=== PATIENT | female | born 1975 | race Caucasian/White ===

== ENCOUNTER 2020-06-21 16:32 | Outpatient (CLI) | payer OTHER, SELFPAY | END 2020-06-21 16:33 | disposition home or self-care (01) | LOC: ANHLAB 16:36 | PROVIDERS: PCP Internal Medicine; Visit Provider Internal Medicine | DX: E03.9 Hypothyroidism, unspecified (principal) | CPT/HCPCS: 36415; 84443 ==

== ENCOUNTER 2020-12-20 16:29 | Outpatient (CLI) | payer OTHER, SELFPAY | END 2020-12-20 16:30 | disposition home or self-care (01) | LOC: ANHLAB 16:31 | PROVIDERS: PCP Internal Medicine; Visit Provider Internal Medicine | DX: E03.9 Hypothyroidism, unspecified (principal) | CPT/HCPCS: 36415; 84443 ==

== ENCOUNTER 2021-02-03 11:00 | Outpatient (CLI) | payer OTHER, SELFPAY ==
--- NOTE | ~2021-02-03 | US_ITS ---
EXAMINATION: US thyroid DATE: 02/03/2021 11:33 INDICATION: Hypothyroidism. TECHNIQUE: Multiple ultrasound images of the thyroid were obtained. COMPARISON: None. FINDINGS: The right thyroid lobe measures 3.5 x 1.2 x 0.9 cm. The left thyroid lobe measures 3.6 x 1.3 x 1.0 c m. The thyroid is diffusely heterogeneous and hypoechoic. Vascularity is increased. No discrete nodu le. IMPRESSION: 1. Heterogeneous, hypervascular thyroid, likely chronic lymphocytic (Marlee) thyroiditis. Reviewed, dictated and finalized at location A.
== END 2021-02-03 11:01 | disposition home or self-care (01) ==
LOC: ANHIMG 11:01
PROVIDERS: PCP Internal Medicine; Visit Provider Nurse Practitioner
DX: E03.9 Hypothyroidism, unspecified (principal); E06.3 Autoimmune thyroiditis
CPT/HCPCS: 76536

== ENCOUNTER 2021-07-16 09:36 | Outpatient (CLI) | payer OTHER, SELFPAY ==
[2021-07-16 10:11] LABS: Cholesterol 225 mg/dL (0-200); HDL Direct 58 mg/dL; Triglycerides 74 mg/dL (<150)
[2021-07-16 10:23] LABS: LDL Cholesterol Direct 124 mg/dL
[2021-07-16 10:47] LABS: Free T4 Free Thyroxine 0.78 ng/mL (0.78-2.19); Vitamin D 25 Hydroxy 49.1 ng/mL
[2021-07-19 12:02] LABS: Triiodothyronine T3 Free 2.5 pg/mL (2.3-4.2)
== END 2021-07-16 09:37 | disposition home or self-care (01) ==
PROVIDERS: PCP Internal Medicine; Referring Provider Nurse Practitioner; Visit Provider Internal Medicine Endocrinology, Diabetes & Metabolism
DX: E03.9 Hypothyroidism, unspecified (principal); E04.9 Nontoxic goiter, unspecified; Z13.21 Encounter for screening for nutritional disorder; E78.5 Hyperlipidemia, unspecified; E55.9 Vitamin D deficiency, unspecified
CPT/HCPCS: 36415; 80061; 82306; 84439; 84443; 84481

== ENCOUNTER 2021-11-04 12:32 | Outpatient (CLI) | payer OTHER, SELFPAY ==
[2021-11-04 14:13] LABS: Free T4 Free Thyroxine 1.02 ng/mL (0.78-2.19)
== END 2021-11-04 12:33 | disposition home or self-care (01) ==
LOC: ANHLAB 12:35
PROVIDERS: PCP Internal Medicine; Visit Provider Internal Medicine Endocrinology, Diabetes & Metabolism
DX: E03.9 Hypothyroidism, unspecified (principal)
CPT/HCPCS: 36415; 84439; 84443

== ENCOUNTER → 2022-01-26 10:05 | Outpatient (CLI) | payer OTHER, SELFPAY ==
--- NOTE | ~2022-01-26 | US_ITS ---
EXAMINATION: US pelvic complete DATE: 01/26/2022 10:33 INDICATION: Menorrhagia Comparison:No prior studies for comparison. TECHNIQUE: Multiple transabdominal and endovaginal sonographic images of the pelvis performed. FINDINGS: The uterus measures 10.1 x 4.7 x 4.9 cm. The endometrial complex measures 5 mm. The right ovary measures 3.5 x 1.8 x 1.7 cm and the left ovary measures 2.3 x 2.2 x 1.7 cm. There ar e small follicles in each ovary. Normal doppler signal in both ovaries. There is no free fluid in the pelvis. There are no abnormal masses seen on either side. IMPRESSION: 1. Unremarkable pelvic ultrasound. Reviewed, dictated and finalized at location B.
== END ==
PROVIDERS: PCP Internal Medicine; Visit Provider Advanced Practice Midwife
DX: N92.1 Excessive and frequent menstruation with irregular cycle (principal)
CPT/HCPCS: 76856

== ENCOUNTER 2022-01-26 16:10 | Outpatient (CLI) | payer OTHER, SELFPAY ==
[2022-01-26 16:21] LABS: Hemoglobin 14.6 g/dL (12.0-15.0); Mean Corpuscular HGB Conc 33.2 g/dl (32-36); Mean Corpuscular Hemoglobin 30.9 pg (26-34); Mean Platelet Volume 10.9 fl (7.4-10.4); Platelet Count Result 223 k/mm3 (150-375); Red Blood Count 4.73 M/mm3 (4.2-5.4); Red Cell Distribution Width 12.9 % (11.5-14.5); White Blood Count 7.2 K/mm3 (4.5-10.0)
[2022-01-26 17:23] LABS: Free T4 Free Thyroxine 1.05 ng/mL (0.78-2.19)
[2022-01-29 15:30] LABS: Triiodothyronine T3 Free 2.6 pg/mL (2.3-4.2)
== END 2022-01-26 16:11 | disposition home or self-care (01) ==
LOC: ANHLAB 16:11
PROVIDERS: PCP Internal Medicine; Visit Provider Internal Medicine Endocrinology, Diabetes & Metabolism
DX: E03.9 Hypothyroidism, unspecified (principal); E04.9 Nontoxic goiter, unspecified; N92.1 Excessive and frequent menstruation with irregular cycle
CPT/HCPCS: 36415; 84439; 84443; 84481; 85027

== ENCOUNTER 2022-06-09 10:04 | Outpatient (CLI) | payer OTHER, SELFPAY ==
[2022-06-09 11:05] LABS: Free T4 Free Thyroxine 1.45 ng/mL (0.78-2.19)
[2022-06-09 11:14] LABS: Thyroid Stimulating Hormone 0.747 uIU/mL (0.465-4.680)
== END 2022-06-09 10:05 | disposition home or self-care (01) ==
PROVIDERS: PCP Internal Medicine; Visit Provider Internal Medicine Endocrinology, Diabetes & Metabolism
DX: E03.9 Hypothyroidism, unspecified (principal)
CPT/HCPCS: 36415; 84439; 84443

== ENCOUNTER 2022-08-03 11:16 | Outpatient (CLI) | payer OTHER, SELFPAY ==
[2022-08-03 18:23] LABS: Thyroid Stimulating Hormone 0.339 uIU/mL (0.465-4.680)
[2022-08-03 19:56] LABS: Free T4 Free Thyroxine 1.37 ng/mL (0.78-2.19)
== END 2022-08-03 11:17 | disposition home or self-care (01) ==
LOC: ANHWCLAB 11:17
PROVIDERS: PCP Family Medicine; Visit Provider Internal Medicine Endocrinology, Diabetes & Metabolism
DX: E03.9 Hypothyroidism, unspecified (principal)
CPT/HCPCS: 36415; 84439; 84443

== ENCOUNTER 2022-10-05 15:23 | Outpatient (CLI) | payer OTHER, SELFPAY ==
[2022-10-05 17:15] LABS: Free T4 Free Thyroxine 1.11 ng/mL (0.78-2.19)
== END 2022-10-05 15:24 | disposition home or self-care (01) ==
LOC: ANHLAB 15:24
PROVIDERS: PCP Family Medicine; Visit Provider Internal Medicine Endocrinology, Diabetes & Metabolism
DX: E03.9 Hypothyroidism, unspecified (principal)
CPT/HCPCS: 36415; 84439; 84443

== ENCOUNTER 2023-02-01 11:03 | Outpatient (CLI) | payer OTHER, SELFPAY ==
[2023-02-01 17:15] LABS: Free T4 Free Thyroxine 1.24 ng/mL (0.78-2.19)
== END 2023-02-01 11:04 | disposition home or self-care (01) ==
LOC: ANHWCLAB 11:04
PROVIDERS: PCP Family Medicine; Visit Provider Internal Medicine Endocrinology, Diabetes & Metabolism
DX: E03.9 Hypothyroidism, unspecified (principal)
CPT/HCPCS: 36415; 84439; 84443

== ENCOUNTER 2023-08-08 09:01 | Outpatient (CLI) | payer OTHER, SELFPAY ==
[2023-08-08 13:24] LABS: Free T4 Free Thyroxine 1.26 ng/mL (0.78-2.19)
== END 2023-08-08 09:02 | disposition home or self-care (01) ==
LOC: ANHWCLAB 09:02
PROVIDERS: PCP Family Medicine; Visit Provider Nurse Practitioner Family
DX: E03.9 Hypothyroidism, unspecified (principal); E06.3 Autoimmune thyroiditis
CPT/HCPCS: 36415; 84439; 84443

== ENCOUNTER 2024-02-06 09:38 | Outpatient (CLI) | payer OTHER, SELFPAY ==
[2024-02-06 10:51] LABS: Thyroid Stimulating Hormone 0.927 uIU/mL (0.465-4.680)
[2024-02-06 10:52] LABS: Free T4 Free Thyroxine 1.11 ng/mL (0.78-2.19)
== END 2024-02-06 09:39 | disposition home or self-care (01) ==
LOC: ANHLAB 09:40
PROVIDERS: PCP Family Medicine; Visit Provider Nurse Practitioner Family
DX: E03.8 Other specified hypothyroidism (principal); E06.3 Autoimmune thyroiditis
CPT/HCPCS: 36415; 84439; 84443

== ENCOUNTER 2024-09-26 11:26 | Outpatient (CLI) | payer OTHER, SELFPAY ==
--- OUTSIDE RECORDS SUMMARY | 2024-09-26 11:33 | XMS_ITS | Referral Summary ---
Author Organization [facility] Address [address] [place] [address] Care Team Providers Care Development Advisor Name Role Phone Fernandez Correia MD Primary Care Provider [phone] Allergies Active Allergy Reactions Criticality Noted Date Comments Penicillins Anaphylaxis High 03/11/2018 Medications cetirizine (ZyrTEC) 10 mg tabletIndicatio ns:Allergic Rhinitis Take 1 tablet (10 mg total) by mouth daily Active levothyroxine (SYNTHROID) 88 mcg tablet 3 Active Zafemy 150-35 mcg/24 hr APPLY 1 PATCH TOPICALLY ONCE A WEEK FOR 21 DAYS 3 Active vit C/Zn gluc/herbal no.325 (ELDERBERRY ZINC VIT C MM) Apply to mouth Active Active Problems Problem Noted Date Diagnosed Date Hypothyroidism 03/10/2024 Assessment & Plan (03/10/2024 8:27 AM CDT): Managed by endocrinology. Levothyroxine 88 mcg daily. Lab Results Component Value Date TSH 0.75 03/04/2024 Physical exam, annual 03/10/2024 Assessment & Plan (03/10/2024 8:28 AM CDT): Preventive exam; reviewed recommended preventive screenings and vaccinations. Encourage annual flu vaccine. Wear sunscreen/protective clothing when outdoors. -with campus safety officer annually, has order for mammogram and is aware to call and schedule this. She is up-to-date on her colorectal cancer screening, completed Cologuard. BMI 29.0-29.9,adult 03/10/2024 Assessment & Plan (03/10/2024 8:28 AM CDT): BMI is appropriate for patient Immunizations Immunization Administration Dates Next Due Influenza, Unspecified 03/10/2024(Deferr ed: Patient Refused),03/11/2023(Deferred: Patient Refused),03/05/2023(Deferred: Patient Refused),03/11/2022(Deferred: Patient Refused),03/05/2022(Deferred: Patient Refused) Social History Tobacco Use Types Packs/Day Years Used Date Smoking Tobacco: Former Cigarettes 0.3 20 1 - 03/22/2018 Smokeless Tobacco: Never Tobacco Cessation:Counseling Given: Not Answered Alcohol Use Standard Drinks/Week Comments No 0 (1 standard drink = 0.6 oz pur e alcohol) PHQ-2 Answer Date Recorded PHQ-2 Total Score (If total score is 3 or more points, staff should administer the PHQ-9) 0 03/10/2024 Comments Unknown Sex and Gender Information Value Date Recorded Sex Assigned at Not on file 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 Gender Identity Not on file Sexual Orientation Not on file Last Filed Vital Signs Vital Sign Reading Time Taken Comments Blood Pressure 116/74 03/10/2024 7:56 AM CDT Pulse 88 03/10/2024 7:56 AM CDT Temperature 36.8 C (98.3 F) 03/10/2024 7:56 AM CDT Respiratory Rate 16 03/10/2024 7:56 AM CDT Oxygen Saturation 98% 03/10/2024 7:56 AM CDT Inhaled Oxygen Concentration - - Weight 74.9 kg (165 lb 1.6 oz) 03/10/2024 7:56 A M CDT Height 160 cm (5' 2.99 ) 03/10/2024 7:56 AM CDT Body Mass Index 29.25 03/10/2024 7:56 AM CDT Plan of Treatment Not on file Medical Devices Implanted Type Area Steaming Cabinet Tender Device Identifier Shelf Expiration Date Model / Serial / Lot [employer] [id number] Juggerknot Maxbraid 2.9mm 2 Loaded Soft Tapered Needle 2 [place] - [id number] Implanted:Qty: 2 on 03/22/2018 by Tonio Bellamy DPM at [facility] Right: Achilles Tendon [employer] 12/31/2022 [id number] / / [id number] [employer] [id number] Quattro Link 4.5mm 1 Row Knotless Self Punch Unique Eyelet [place] - [id number] Implanted:Qty: 1 on 03/22/2018 by Tonio Bellamy DPM at [facility] Right: Achilles Tendon [employer] 08/17/2022 [id number] / / [id number] [employer] Cm-9145sp Quattro Link 4.5mm 1 Row Knotless Self Punch Unique Eyelet [place] - [id number] Implanted:Qty: 1 on 03/22/2018 by Tonio Bellamy DPM at [facility] Right: Achilles Tendon [employer] 11/02/2022 [id number] / / [id number] [facility] Advance Directives For more information, please contact: [phone] * Full Code (Latest Code Status on File) Date Activated Date Inactivated Comments 03/22/2018 1:35 PM 03/22/2018 6:36 PM Care Teams Development Advisor Relationship Specialty Start Date End Date Fernandez Correia MD [address] [place] [address] PCP - General Family Medicine 03/05/23
--- OUTSIDE RECORDS SUMMARY | 2024-09-26 11:33 | XMS_ITS | Clinical Summary ---
Author Organization [facility] Address [address] [place] [address] Care Team Providers Care Product Responsibility Liaison Name Role Phone Fernandez Correia MD Primary Care Provider [phone] Allergies Active Allergy Reactions Criticality Noted Date [...] vaccine. Wear sunscreen/protective clothing when outdoors. -with healthcare technician annually, has order for mammogram and is aware to call and schedule this. She is up-to-date on her colorectal cancer screening, completed Cologuard. BMI 29.0-29.9,adult 03/10/2024 Assessment & Plan (03/10/2024 8:28 AM CDT): BMI is appropriate for patient Immunizations Immunization Administration Dates Next Due Influenza, Unspecified 03/10/2024(Deferr ed: Patient Refused),03/11/2023(Deferred: Patient Refused),03/05/2023(Deferred: Patient Refused),03/11/2022(Deferred: Patient Refused),03/05/2022(Deferred: Patient Refused) Surgical History Surgery Date Site/Laterality Comments ACHILLES TENDON REPAIR SECTION EYE SURGERY Medical History Medical History Date Comments Thyroid disease Social History Tobacco Use Types Packs/Day Years [...] on file 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 Gender Identity Not on file Sexual Orientation Not on file Obstetrics History Last Filed Vital Signs Vital Sign Reading [...] 03/10/2024 7:56 AM CDT Plan of Treatment Health Maintenance Due Date Last Done Comments Breast Cancer Screening-Mammogram 1976 Cervical Cancer Screening 1976 Colon Cancer Screening-DNA Stool 1976 Hepatitis C Screening 1976 DTaP/Tdap/Td Vaccine (1 - Tdap) 10/25/1987 Hepatitis B Screening 1994 Influenza Vaccine (#1) 2024 Postp oned from 02/10/2024 (Patient declined, but will receive in the future) Depression Screening 03/10/2025 03/10/2024, 03/05/2023 Regular Well Visit/Exam 18-64 03/10/2025 03/10/2024 Pneumococcal vaccine <65 Aged Out No longer eligible based on patient's age to complete this topic Medical Devices Implanted Type Area Cras Device Identifier Shelf Expiration Date Model / Serial / Lot [employer] [id number] Juggerknot Maxbraid 2.9mm 2 Loaded Soft Tapered Needle 2 [place] - [id number] Implanted:Qty: 2 on 03/22/2018 by Tonio Bellamy DPM at [facility] Right: Achilles Tendon [employer] 12/31/2022 [id number] / / [id number] [employer] Cm-9145sp Quattro Link 4.5mm 1 Row Knotless Self Punch Unique Eyelet [place] - [id number] Implanted:Qty: 1 on 03/22/2018 by Tonio Bellamy DPM at [facility] Right: Achilles Tendon [employer] 08/17/2022 [id number] / / [id number] [employer] Cm-9145sp Quattro Link 4.5mm 1 Row Knotless Self Punch Unique Eyelet [place] - [id number] Implanted:Qty: 1 on 03/22/2018 by Tonio Bellamy DPM at [facility] Right: Achilles Tendon [employer] 11/02/2022 [id number] / / [id number] Insurance [facility] Advance Directives For more information, please contact: [phone] * Full Code (Latest Code Status on File) Date Activated Date Inactivated Comments 03/22/2018 1:35 PM 03/22/2018 6:36 PM Care Teams Product Responsibility Liaison Relationship Specialty Start Date End [place] [address] PCP - General Family Medicine 03/05/23
--- OUTSIDE RECORDS SUMMARY | 2024-09-26 11:33 | XMS_ITS | Clinical Summary ---
Author Organization [facility] Address [address] [place] [address] Care Team Providers Care Register Repairer Name Role Phone Noman Tsang MD Primary Care Provider [phone] Source Comments [facility],non-owned Affiliates and Associated Physician Practices is amultiple site organization consisting of ambulatory clinics and hospital sitesin [place], [place], [place] and [place]. This disclosure is being madepursuant to the Care Everywhere program and may not contain all information available regarding this patient. Last updated 18.[facility] Allergies Active Allergy Reactions Criticality Noted Date Comments Penicillins Rash Medium 06/05/2019 Medications * Be aware that medications may not be up to date on this document. Alwaysverify current medications with the patient. levothyroxine (SYNTHROID) 75 MCG tablet Take 75 mcg by mouth daily before breakfast Active benzonatate (TESSALON) 200 MG capsule Take 1 capsule by mouth 3 times daily as needed for Cough 30 capsule 9 Active albuterol HFA (PROVENTIL;VENT ARIANA;PROAIR) 108 (90 Base) MCG/ACT inhaler Inhale 2 puffs by mouth every 4 hours as needed for Wheezing 1 Inhaler 9 Active methylPREDNISol one (MEDROL DOSEPAK) 4 MG tablet Take by mouth as directed 1 Each 9 Active Social History Tobacco Use Types Packs/Day Years Used Date Smoking Tobacco: Former Cigarettes 0.5 20 Smokeless Tobacco: Never Comments No Sex and Gender Information Value Date Recorded Sex Assigned at Not on file Legal Sex Female 7:19 PM NETWORK TECHNICAL ANALYST Gender Identity Not on file Sexual Orientation Not on file Last Filed Vital Signs Vital Sign Reading Time Taken Comments Blood Pressure 122/74 06/05/2019 3:45 PM NETWORK TECHNICAL ANALYST Pulse 86 06/05/2019 3:45 PM NETWORK TECHNICAL ANALYST Temperature 37.1 C (98.8 F) 06/05/2019 3:45 PM NETWORK TECHNICAL ANALYST Respiratory Rate 16 06/05/2019 3:45 PM NETWORK TECHNICAL ANALYST Oxygen Saturation 98% 06/05/2019 3:45 PM NETWORK TECHNICAL ANALYST Inhaled Oxygen Concentration - - Weight 86.2 kg (190 lb) 06/05/2019 3:45 PM NETWORK TECHNICAL ANALYST Height 160 cm (5' 3 ) 06/05/2019 3:45 PM NETWORK TECHNICAL ANALYST Body Mass Index 33.66 06/05/2019 3:45 PM NETWORK TECHNICAL ANALYST Plan of Treatment Health Maintenance Due Date Last Done Comments COLOGUARD (AGES 45-75) - COL ON CA SCREENING 1976 COLON MONITORING 1976 COLONOSCOPY - COLON CA SCREENING 1976 CT COLONOGRAPHY - COLON CA SCREENING 1976 Colorectal Cancer Screening 1976 FIT - COLON CA SCREENING 1976 FLEX SIG - COLON CA SCREENING 1976 LIPID TESTING 1976 MAMMOGRAM 1976 HIV SCREENING 10/25/1991 HEPATITIS C SCREENING 10/20/1994 DTAP/TDAP/TD VACCINES (1 - Tdap) 10/25/1995 HEPATITIS B VACCINE (1 of 3 - 19+ 3-dose series) 10/25/1995 SCREENING FOR DIABETES 06/05/2019 COVID-19 VACCINE (1 - 2023-2 5 season) 2024 DEPRESSION SCREENING 06/11/2024 INFLUENZA VACCINE (Season Ended) 2025 ZOSTER VACCINE (1 of 2) 2026 HIB VACCINE Aged Out No longer eligi ble based on patient's age to complete this topic HPV VACCINE Aged Out No longer eligi ble based on patient's age to complete this topic MENINGOCOCCAL (Group B) VACC INE SHARED DECISION-MAKING Aged Out No longer eligibl e based on patient's age to complete this topic MENINGOCOCCAL GROUPS A/C/Y/W VACCINE Aged Out No longer eligible b ased on patient's age to complete this topic PNEUMOCOCCAL VACCINE Aged Out No long er eligible based on patient's age to complete this topic Insurance [facility] Address: [facility] [id number] [place] [address] Care Teams Register Repairer Relationship Specialty Start Date End Date Noman Tsang MD [address] [place] [address] PCP - General 05/13/13
[2024-09-26 12:28] LABS: Thyroid Stimulating Hormone 0.445 uIU/mL (0.465-4.680)
== END 2024-09-26 11:27 | disposition home or self-care (01) ==
LOC: ANHLAB 11:28
PROVIDERS: PCP Family Medicine; Visit Provider Nurse Practitioner Family
DX: E03.9 Hypothyroidism, unspecified (principal)
CPT/HCPCS: 36415; 84439; 84443

== ENCOUNTER 2025-03-10 10:25 | Outpatient (CLI) | payer OTHER, SELFPAY ==
--- OUTSIDE RECORDS SUMMARY | 2025-03-10 11:16 | XMS_ITS | Clinical Summary ---
Author Organization [facility] Address [address] [place] [address] Care Team Providers Care Hand Cloth Folder Name Role Phone Fernandez Correia MD Primary Care Provider [phone] Allergies Active Allergy Reactions Criticality Noted Date Comments Penicillins Anaphylaxis High 03/11/2018 Medications cetirizine (ZyrTEC) 10 mg tabletIndications :Allergic Rhinitis Take 1 tablet (10 mg total) by mouth daily Active levothyroxine (SYNTHROID) 88 mcg tablet 3 Active Zafemy 150-35 mcg/24 hr APPLY 1 PATCH TOPICALLY ONCE A WEEK FOR 21 DAYS 3 Active vit C/Zn gluc/herbal no.325 (ELDERBERRY ZINC VIT C MM) Apply to mouth Active doxycycline (VIBRAMYCIN) 100 mg capsuleIndication s:Pneumonia, Community Acquired Take 1 tablet/capsul e (100 mg total) by mouth 2 (two) times a day for 5 days 10 tablet/capsu le 5 02/19/20 25 predniSONE (DELTASONE) 20 mg tabletIndications :Acute non-recurrent pansinusitis Take 2 tablets (40 mg) by mouth daily for 5 days 10 tablet 5 02/19/20 25 Active Problems Problem Noted Date Diagnosed Date Hypothyroidism 03/10/2024 Assessment & Plan (03/10/2024 8:27 AM CDT): Managed by endocrinology. Levothyroxine 88 mcg daily. Lab Results Component Value Date TSH 0.75 03/04/2024 Physical exam, annual 03/10/2024 Assessment & Plan (03/10/2024 8:28 AM CDT): Preventive exam; reviewed recommended preventive screenings and vaccinations. Encourage annual flu vaccine. Wear sunscreen/protective clothing when outdoors. -with supervisor aluminum fabrication annually, has order for mammogram and is aware to call and schedule this. She is up-to-date on her colorectal cancer screening, completed Cologuard. 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 Gender Identity Not on file Sexual Orientation Not on file Obstetrics History Last Filed Vital Signs Vital Sign Reading Time Taken Comments Blood Pressure 118/74 02/13/2025 4:46 PM CDT Pulse 74 02/13/2025 4:46 PM CDT Temperature 36.3 C (97.3 F) 02/13/2025 4:46 PM CDT Respiratory Rate 18 02/13/2025 4:46 PM CDT Oxygen Saturation 98% 02/13/2025 4:46 PM CDT Inhaled Oxygen Concentration - - Weight 73.9 kg (163 lb) 02/13/2025 4:46 PM CDT Height 160 cm (5' 3) 02/13/2025 4:46 PM CDT Body Mass Index 28.87 02/13/2025 4:46 PM CDT Plan of Treatment Health Maintenance Due Date Last Done Comments Breast Cancer Screening-Mammogram 1976 Cervical Cancer Screening 1976 Colon Cancer Screening-DNA Stool 1976 Hepatitis C Screening 1976 DTaP/Tdap/Td Vaccine (1 - Tdap) 10/25/1987 Hepatitis B Screening 1994 Influenza Vaccine (#1) 2025 Depression Screening 03/10/2025 03/10/2024, 03/05/2023 Regular Well Visit/Exam 18-64 03/10/2025 03/10/2024 Pneumococcal vaccine <65 Aged Out No longer eligible based on patient's age to complete this topic Medical Devices Implanted Type Area Regional Education Manager Device Identifier Shelf Expiration Date Model / Serial / Lot [employer] [id number] Juggerknot Maxbraid 2.9mm 2 Loaded Soft Tapered Needle 2 [place] - [id number] Implanted:Qty: 2 on 03/22/2018 by Tonio Bellamy DPM at [facility] Right: Achilles Tendon [employer] 12/31/2022 [id number] / / [id number] [place] [employer] Cm-9145sp Quattro Link 4.5mm 1 Row Knotless Self Punch Unique Eyelet [place] - [id number] Implanted:Qty: 1 on 03/22/2018 by Tonio Bellamy DPM at [facility] Right: Achilles Tendon [employer] 08/17/2022 [id number] / / [id number] [employer] Cm-9145sp Quattro Link 4.5mm 1 Row Knotless Self Punch Unique Eyelet [place] - [id number] Implanted:Qty: 1 on 03/22/2018 by Tonio Bellamy DPM at [facility] Right: Achilles Tendon [facility] [employer] 11/02/2022 [id number] / / [id number] Insurance Advance Directives For more information, please contact: [phone] * Full Code (Latest Code Status on File) Date Activated Date Inactivated Comments 03/22/2018 1:35 PM 03/22/2018 6:36 PM Care Teams Hand Cloth Folder Relationship Specialty Start Date End Date Fernandez Correia MD [address] [place] [address] PCP - General Family Medicine 03/05/23
--- OUTSIDE RECORDS SUMMARY | 2025-03-10 11:16 | XMS_ITS | Clinical Summary ---
Author Organization [facility] Address [address] [place] [address] Care Team Providers Care Truck Service Technician Name Role Phone Noman Tsang MD Primary Care Provider [phone] Source Comments [facility],non-owned Affiliates and Associated Physician Practices is amultiple site organization consisting of ambulatory clinics and hospital sitesin [place], [place], [place] and [place]. This disclosure is being madepursuant to the Care Everywhere program and may not contain all information available regarding this patient. Last updated 18.[facility] Allergies Active Allergy Reactions Criticality Noted Date [...] on file Legal Sex Female 7:19 PM THEATER USHER Gender Identity Not on file Sexual Orientation Not on file Last Filed Vital Signs Vital Sign Reading Time Taken Comments Blood Pressure 122/74 06/05/2019 3:45 PM THEATER USHER Pulse 86 06/05/2019 3:45 PM THEATER USHER Temperature 37.1 C (98.8 F) 06/05/2019 3:45 PM THEATER USHER Respiratory Rate 16 06/05/2019 3:45 PM THEATER USHER Oxygen Saturation 98% 06/05/2019 3:45 PM THEATER USHER Inhaled Oxygen Concentration - - Weight 86.2 kg (190 lb) 06/05/2019 3:45 PM THEATER USHER Height 160 cm (5' 3) 06/05/2019 3:45 PM THEATER USHER Body Mass Index 33.66 06/05/2019 3:45 PM THEATER USHER Plan of Treatment Health Maintenance Due Date [...] 3-dose series) 10/25/1995 SCREENING FOR DIABETES 06/05/2019 DEPRESSION SCREENING 06/11/2024 COVID-19 VACCINE (1 - 2023-2 5 season) 2025 INFLUENZA VACCINE (#1) 2025 ZOSTER VACCINE (1 of 2) 2026 [...] age to complete this topic Insurance [employer] Care Teams Truck Service Technician Relationship Specialty Start Date End Date Noman Tsang MD [address] [place] [address] PCP - General 05/13/13
[2025-03-10 12:08] LABS: Free T4 Free Thyroxine 1.11 ng/dL (0.78-2.19)
[2025-03-10 12:22] LABS: Thyroid Stimulating Hormone 0.795 uIU/mL (0.465-4.680)
== END 2025-03-10 10:26 | disposition home or self-care (01) ==
LOC: ANHLAB 10:27
PROVIDERS: PCP Family Medicine; Visit Provider Nurse Practitioner Family
DX: E03.8 Other specified hypothyroidism (principal); E06.3 Autoimmune thyroiditis
CPT/HCPCS: 36415; 84439; 84443